=== PATIENT | male | born 1955 | race Caucasian/White ===

== ENCOUNTER 2018-06-16 21:22 | Emergency (ER) | END 2018-06-16 23:26 | disposition home or self-care (01) ==

== ENCOUNTER 2018-11-02 06:24 | Emergency (ER) | payer MEDICARE ==
[~2018-11-02] VITALS: Ht 177.8 cm; Wt 84.1 kg
[~2018-11-02 06:24] MED LIST: BEN25 PO; CLON1TAB13 PO; HYDR-3980 PO; PREG150C PO; QUET400T PO; SULF1TAB31 PO
[2018-11-02 06:30] VITALS: Ht 177.8 cm; Wt 84.1 kg
[2018-11-02] MEDS ORDERED: SULF1TAB31 PO (06:58)
[2018-11-02] MEDS ORDERED: clonAZEPAM 0.5 MG TAB PO ONE (07:00)
--- NOTE | 2018-11-02 07:03 | ERD ---
ER Documentation Chief Complaint Chief Complaint needs med refill. also concerned about trickling urine. recent dx uti HPI 63-year-old male presents the emergency department by paramedics requesting a refill of his urinary tract infection antibiotics as well as his chronic benzo and pain medication. Patient has no acute complaints other than stating that the urinary tract infection symptoms that he had continue. He reports dysuria with no fevers chills or flank pain. Reports no vomiting. He states he has chronic anxiety as well as chronic pain. He denies suicidal or homicidal thoughts. Denies any acute trauma or acute change in his pain. ROS All systems reviewed and are negative except as per history of present illness. Medications Home Meds Active Scripts Sulfamethoxazole/Trimethoprim* (Bactrim Ds* Tablet) 1 Each Tablet, 1 TAB PO BID, #14 TAB Prov:GAGANDEEP JUAREZ 11/02/18 Sulfamethoxazole/Trimethoprim* (Bactrim Ds* Tablet) 1 Each Tablet, 1 TAB PO BID for 14 Days, TAB Prov:RYLAND VASQUEZ MD 10/22/18 Reported Medications Diphenhydramine Hcl* (Benadryl*) 25 Mg Cap, 25 MG PO NEEDED PRN for ITCHING, CAP 10/22/18 Pregabalin* (Lyrica*) 150 Mg Capsule, 150 MG PO BID, CAP 10/22/18 Quetiapine Fumarate* (Seroquel*) 400 Mg Tablet, 400 MG PO HS, TAB 10/22/18 Clonazepam* (Clonazepam*) 1 Mg Tablet, 1 MG PO BID PRN for ANXIETY, TAB 10/22/18 Hydrocodone/Acetaminophen ([place] 10-325 Tablet) 1 Each Tablet, 1 EACH PO TID, TAB 10/22/18 Allergies Allergies: Coded Allergies: No Known Allergies (Verified Allergy, Mild, 10/22/18) PMhx/Soc History of Surgery: No Anesthesia Reaction: No Hx Neurological Disorder: No Hx Respiratory Disorders: No (Emphysema) Hx Cardiac Disorders: No Hx Psychiatric Problems: No Hx Miscellaneous Medical Probl: Yes (ARTHRITIS LOWER BACK & BILAT KNEES, "PROSTATE PROBLEMS" PER PATIENT) Hx Alcohol Use: Yes Hx Substance Use: No Hx Tobacco Use: Yes Smoking Status: Current every day smoker Physical Exam Vitals Vital Signs Date Temp Pulse Resp B/P (MAP) Pulse Ox O2 O2 Flow FiO2 Time Delivery Rate 11/02/18 97.9 96 18 170/111 96 06:30 (130) Physical Exam GENERAL: The patient is well developed and appropriate for usual state of health in no apparent distress HEENT: Pupils equal, round, and reactive to light. EOMI. There is no scleral icterus. NECK: C-spine is soft and supple, there is no meningismus. There is no cervical lymphadenopathy. LUNGS: Clear to auscultation bilaterally. There are no rales, wheezes or rhon chi. HEART: Regular rate and rhythm, no murmurs, clicks, rubs or gallops. ABDOMEN: Soft, non-tender, non-distended. There are bowel sounds in all four quadrants. No rebound or guarding. EXTREMITIES: There is no peripheral cyanosis or edema. No focal swelling or erythema. NEURO: The patient moves all four extremities with 5/5 strength. Cranial nerves II - XII are intact. Normal gait. Alert and oriented SKIN: There is no apparent rash or petechiae. HEME/LYMPHATIC: There is no evidence of excessive bruising or lymphedema. PSYCHIATRIC: Patient is anxious and hyperverbal. No suicidal or homicidal thoughts no auditory visual hallucinations Results 24 hrs Laboratory Tests Test 11/02/18 06:59 Bedside Urine pH (LAB) 5.5 Bedside Urine Protein (LAB) Negative Bedside Urine Glucose (UA) Negative Bedside Urine Ketones (LAB) Negative Bedside Urine Blood Negative Bedside Urine Nitrite (LAB) Negative Bedside Urine Leukocyte Esterase (L Trace Procedures/MDM Patient was taken to a room, seen and examined [facility] database was reviewed indicating a significant chronic benzo and narcotic history Medical decision makin-year-old male presents the emergency room for refill of medications. His urinalysis dip today does indicate ongoing urinary tract infection and he would be represcribed his Bactrim for which the E. coli that was cultured from his urine during his last visit was sensitive to. Patient has been referred back to his primary care doctor for refill of his narcotic medications and benzodiazepines. Departure Diagnosis: Primary Impression: UTI (urinary tract infection) Condition: Stable Patient Instructions: Understanding Urinary Tract Infections (UTIs) Additional Instructions: Follow up with your doctor for your medication refills GAGANDEEP JUAREZ Nov 02, 2018 07:03
[2018-11-02 07:53] VITALS: BP 158/89; PULSE 89; RESP 17
== END 2018-11-02 08:01 | disposition home or self-care (01) ==
LOC: E/R 06:24
DX: N39.0 Urinary tract infection, site not specified (principal); F17.210 Nicotine dependence, cigarettes, uncomplicated
CPT/HCPCS: 81003; 99283

== ENCOUNTER 2018-11-04 18:21 | Emergency (ER) | payer SELFPAY ==
[~2018-11-04] VITALS: Ht 177.8 cm; Wt 84.1 kg
[2018-11-04 18:31] VITALS: BP 120/87; PULSE 120; RESP 18; Ht 177.8 cm; Wt 84.1 kg
== END 2018-11-04 23:23 | disposition left against medical advice (07) ==
LOC: E/R 18:21
DX: Z53.21 Procedure and treatment not carried out due to patient leaving prior to being seen by health care provider (principal)

== ENCOUNTER 2019-03-07 16:05 | Emergency (ER) | payer MEDICARE ==
[~2019-03-07] VITALS: Ht 172.7 cm; Wt 75.0 kg
[2019-03-07 16:11] VITALS: BP 100/62; PULSE 90; RESP 20; Ht 172.7 cm; Wt 75.0 kg
--- NOTE | 2019-03-07 18:27 | ERD ---
ER Documentation Chief Complaint Chief Complaint FREQUENT URINATION X 3 WEEKS HPI History of Present Illness: 64-year-old male who reports a past medical history of bipolar, chronic back issues, BPH coming in today due to complaint of frequent urination for 3 weeks. Patient denies pain, burning, abdominal pain. Patient reports that his last PSA was elevated at 4.7. Patient reports a diagnosis and treatment for prostatitis within the last year. Denies any other associated symptoms. At home pharmacological/nonpharmacological treatment for symptoms: Denies social concerns; Denies recent foreign travel ROS All systems reviewed and are negative except as per history of present illness. Medications Home Meds Active Scripts Sulfamethoxazole/Trimethoprim* (Bactrim Ds* Tablet) 1 Each Tablet, 1 TAB PO BID, #14 TAB Prov:GAGANDEEP JUAREZ 11/02/18 Sulfamethoxazole/Trimethoprim* (Bactrim Ds* Tablet) 1 Each Tablet, 1 TAB PO BID for 14 Days, TAB Prov:RYLAND VASQUEZ MD 10/22/18 Reported Medications Diphenhydramine Hcl* (Benadryl*) 25 Mg Cap, 25 MG PO NEEDED PRN for ITCHING, CAP 10/22/18 Pregabalin* (Lyrica*) 150 Mg Capsule, 150 MG PO BID, CAP 10/22/18 Quetiapine Fumarate* (Seroquel*) 400 Mg Tablet, 400 MG PO HS, TAB 10/22/18 Clonazepam* (Clonazepam*) 1 Mg Tablet, 1 MG PO BID PRN for ANXIETY, TAB 10/22/18 Hydrocodone/Acetaminophen ([place] 10-325 Tablet) 1 Each Tablet, 1 EACH PO TID, TAB 10/22/18 Allergies Allergies: Coded Allergies: No Known Allergies (Verified Allergy, Mild, 10/22/18) PMhx/Soc History of Surgery: No Anesthesia Reaction: No Hx Neurological Disorder: No Hx Respiratory Disorders: No (Emphysema) Hx Cardiac Disorders: Yes (HTN) Hx Psychiatric Problems: Yes (ANXIETY) Hx Miscellaneous Medical Probl: Yes (ARTHRITIS LOWER BACK & BILAT KNEES, "PROSTATE PROBLEMS" PER PATIENT) Hx Alcohol Use: Yes Hx Substance Use: No Hx Tobacco Use: Yes Smoking Status: Former smoker FmHx Family History: diabetes Physical Exam Vitals Vital Signs Date Temp Pulse Resp B/P (MAP) Pulse Ox O2 O2 Flow FiO2 Time Delivery Rate 03/07/19 97.8 90 20 100/62 96 16:11 (75) Physical Exam Const: No acute distress, afebrile Head: Atraumatic Eyes: Normal Conjunctiva ENT: Normal External Ears, Nose and Mouth. Neck: Full range of motion. No meningismus. Resp: Clear to auscultation bilaterally Cardio: Regular rate and rhythm, no murmurs Abd: Soft, non tender, non distended. No guarding, no masses, no rigidity Skin: No petechiae or rashes Back: No midline or flank tenderness Ext: No cyanosis, or edema Neur: Awake and alert x3, speaking in clear sentences, no focal deficits or facial asymmetry Psych: Normal Mood and Affect Results 24 hrs Laboratory Tests Test 03/07/19 16:40 Urine Color YELLOW Urine Clarity CLEAR Urine pH 6.0 Urine Specific [place] 1.001 Urine Ketones NEGATIVE mg/dL Urine Nitrite NEGATIVE mg/dL Urine Bilirubin NEGATIVE mg/dL Urine Urobilinogen NEGATIVE mg/dL Urine Leukocyte Esterase NEGATIVE [place]/ul Urine Hemoglobin NEGATIVE mg/dL Urine Glucose NEGATIVE mg/dL Urine Total Protein NEGATIVE mg/dl Procedures/MDM ED COURSE: ED course includes a thorough examination and history. The patient was stable throughout ED course. I kept the patient and/or family informed of laboratory and diagnostic imaging results throughout the ED course. LABS: Urinalysis negative MEDICATIONS GIVEN IN ER: None DIAGNOSTIC IMAGING: None. PROCEDURES: None. MEDICAL DECISION MAKING: Unable to complete evaluation of patient. Patient eloped prior to urinalysis results. Patient was hemodynamically stable and without respiratory distress. PRESCRIPTIONS FOR HOME: None DISPOSITION: Eloped DISCLAIMER: Inadvertent spelling and grammatical errors are likely due to EHR/dictation software use and do not reflect on the overall quality of patient care. Also, please note that the electronic time recorded on this note does not necessarily reflect the actual time of the patient encounter. Departure Diagnosis: Primary Impression: History of BPH Additional Impression: Urinary dribbling Condition: ALIN Nguyen NP Mar 07, 2019 18:27
== END 2019-03-07 16:40 | disposition left against medical advice (07) ==
LOC: FTE 16:05
DX: R39.198 Other difficulties with micturition (principal); I10 Essential (primary) hypertension; N40.0 Benign prostatic hyperplasia without lower urinary tract symptoms; Z87.891 Personal history of nicotine dependence
CPT/HCPCS: 81003; 99283